=== PATIENT | female | born 1970 | race Caucasian/White ===

== ENCOUNTER 2021-06-12 17:17 | Emergency (ER) | payer MEDICAID, SELFPAY ==
[2021-06-12 17:17] VITALS: BP 140/86; PULSE 109; RESP 18; TEMP 37.2; O2SAT 95; BMI 22.6
[2021-06-12 17:18] VITALS: BMI 22.6
--- NOTE | 2021-06-12 17:23 | PC.NURSE ---
GOKUL CARRERA at
[2021-06-12 17:26] LABS: Basophils # 0.1 K/mm3 (0-0.2); Basophils % 0.5 % (0.1-2.0); Eosinophils # 0.1 K/mm3 (0.0-0.4); Hematocrit 47.7 % (37.0-47.0); Lymphocytes # 0.6 K/mm3 (0.7-4.5); Lymphocytes % 5.2 % (10-50); Mean Corpuscular HGB Conc 33.6 g/dL (31.8-35.4); Mean Corpuscular Hemoglobin 30.4 pg (27.0-31.2); Mean Corpuscular Volume 90.3 fl (81-99); Mean Platelet Volume 7.9 fl (7.4-10.4); Monocytes # 0.2 K/mm3 (0.1-1.0); Monocytes % 1.9 % (1.7-9.3); Neutrophils % 91.3 % (37.0-80.0); Platelet Count 287 K/mm3 (142-424); Red Blood Count 5.28 M/mm3 (4.20-5.40); Red Cell Distribution Width 12.9 % (11.5-17.5); White Blood Count 12.1 K/mm3 (4.8-10.8)
--- NOTE | 2021-06-12 17:27 | HMH.EDANX ---
ED Disposition Clinical Impression: Acute anxiety Disposition: Home, Self-Care Condition on Discharge: Good Instructions: Anxiety Disorders Additional Instructions: Please follow-up with your primary care physician in the next few days if you do not feel better. Return to the emergency department if you feel worse in any way. Prescriptions: ondansetron HCL [Ondansetron 4mg tab*] 4 mg PO TIDP PRN #12 tab PRN Reason: Nausea Transmission Status: Pending to [id number] Referrals: Provider,Referral, [Primary Care Provider] - - Critical Care Critical Care Time: No Attestation: On , the high probability of a clinically significant, sudden or life threatening deterioration of the following system(s) required my full and direct attention, intervention and personal management. The time I documented below is in addition to time spent performing reported procedures but includes the following listed in this critical care notation. Medical Decision Making - Medical Records Medical records reviewed: Yes: I reviewed the patient's medical records. - Pato Inquiry Pt receiving controlled substance: No Vital Signs: 06/12/21 17:17 Temperature 98.9 F Temperature Source Oral Pulse Rate [Left Radial] 109 H Respiratory Rate 18 Blood Pressure [Right Arm] 140/86 Blood Pressure Mean [Right Arm] 104 Blood Pressure Source [Right Arm] Automatic Cuff Blood Pressure Position [Right Arm] Sitting 02 Sat by Pulse Oximetry 95 Oxygen Delivery Method Room Air - Lab Data Lab results reviewed: Yes: I reviewed the patient's lab results. Lab Results 06/12/21 17:13: WBC 12.1 H, RBC 5.28, Hgb 16.0, Hct 47.7 H, MCV 90.3, MCH 30.4, MCHC 33.6, RDW 12.9, Plt Count 287, MPV 7.9, Neut % (Auto) 91.3 H, Lymph % (Auto) 5.2 L, [place] % (Auto) 1.9, Eos % (Auto) 1.0, Baso % (Auto) 0.5, Neut # (Auto) 11.0 H, Lymph # (Auto) 0.6 L, [place] # (Auto) 0.2, Eos # (Auto) 0.1, Baso # (Auto) 0.1 06/12/21 17:13: Sodium 138, Potassium 4.6, Chloride 105, Carbon Dioxide 23, Anion Gap 14.6, BUN 14, Creatinine 0.80, Estimated Creat Clear 83, Estimated GFR 76, Est GFR ( Amer) 92, Glucose 105 H, Calcium 9.3, Total Bilirubin 1.1, AST 32, ALT 22, Alkaline Phosphatase 62, Total Protein 7.5, Albumin 4.6, Globulin 2.9, Albumin/Globulin Ratio 1.6 Result diagrams: 06/12/21 17:13 06/12/21 17:13 Orders (Tests/Meds): ED MEDICATIONS Generic Name Dose Route Start Last Admin Trade Name Freq PRN Reason Stop Dose Admin Sodium Chloride 10 ml 06/12/21 17:19 06/12/21 17:35 Sodium Chloride 0.9% 10ml Flush Syringe IV 07/12/21 17:18 10 ml NEEDED PRN Administration Maintain IV Site Discontinued Medications Generic Name Dose Route Start Last Admin Trade Name Freq PRN Reason Stop Dose Admin Diphenhydramine HCl 25 mg 06/12/21 17:26 06/12/21 17:34 Diphenhydramine 50mg/Ml Vial IV 06/12/21 17:27 25 mg ONCE ONE Administration Ondansetron HCl 4 mg 06/12/21 17:26 06/12/21 17:34 Ondansetron 4mg/2ml Vial IV 06/12/21 17:27 4 mg ONCE ONE Administration ORDERS Category Date Time Status Complete Blood Count Auto Diff Stat Lab 06/12/21 17:13 Results UA [Urinalysis and Microscopic] Stat Lab 06/12/21 17:19 Ordered Medical Decision Narrative: The patient feels better and is sleeping at this time. Her tingling has resolved. She complains of some continued nausea. The patient's work-up in the emergency department did not reveal any life-threatening or dangerous causes for the patient's symptoms. She has a mildly elevated white blood cell count which is nonspecific finding. Her electrolytes are normal. Tums have essentially resolved. The patient will be discharged in stable condition with a prescription of Zofran. Anxiety HPI - General Chief Complaint: Anxiety Stated Complaint: vomitting, tingling of hands and feet Time Seen by Provider: 06/12/21 17:27 Mode of Arrival: Family Vehicle Source of Information: Patient
[2021-06-12 17:30] LABS: MANUAL DIFFERENTIAL MANUAL DIFFERENTIAL (MANUAL DIFF)
[2021-06-12 17:36] LABS: Chloride 105 mmol/L (98-107); Potassium 4.6 mmoL/L (3.5-5.1); Sodium 138 mmol/L (136-145)
[2021-06-12 17:39] LABS: Alanine Aminotransferase 22 U/L (12-78); Albumin Level 4.6 g/dl (3.5-5.0); Albumin/Globulin Ratio 1.6 (1.1-1.8); Alkaline Phosphatase 62 U/L (38-126); Anion Gap 14.6 mEq/L (5-15); Aspartate Amino Transferase 32 U/L (14-36); Bilirubin,Total 1.1 mg/dl (0.2-1.3); Blood Urea Nitrogen 14 mg/dl (7-17); Calcium 9.3 mg/dl (8.4-10.2); Carbon Dioxide 23 mmol/L (22.0-30.0); Creatinine Clearance Estimated 83 mL/min (50-200); Estimated Glomerular Filt Rate 76 ml/min (>60); GFR (African American) 92 ML/MIN (>60); Globulin 2.9 g/dL (1.3-3.2); Glucose 105 mg/dl (74-100); Total Protein,Serum 7.5 g/dl (6.3-8.2)
[2021-06-12 18:00] VITALS: BP 147/94; PULSE 88; RESP 24; O2SAT 96
[2021-06-12 18:37] VITALS: BP 130/77; PULSE 86; RESP 24; O2SAT 97
[2021-06-12 18:46] LABS: Lymphocytes % 4 % (10-50); Monocytes % 3 % (2-9); Neutrophils % 88 % (42-76); Platelet Estimate Normal; RBC Morphology Normal; Total Cells Counted 100
[2021-06-12 19:14] VITALS: BP 130/76; PULSE 98; RESP 18; TEMP 37.2; O2SAT 97
== END 2021-06-12 19:21 | disposition home or self-care (01) ==
PROVIDERS: Emergency Provider Emergency Medicine
DX: F41.1 Generalized anxiety disorder (principal); F43.0 Acute stress reaction
CPT/HCPCS: 80053; 85007; 85025; 96374; 96375; 99284; J2405

== ENCOUNTER 2023-12-29 13:25 | Outpatient (CLI) | payer MEDICAID, SELFPAY ==
--- NOTE | 2023-12-29 13:31 | XR_ITS ---
PROCEDURE INFORMATION: Exam: XR Lumbosacral Spine Exam date and time: 12/29/2023 1:36 PM Age: 53 years old Clinical indication: Low back pain; Additional info: Pain back and left hip TECHNIQUE: Imaging protocol: Radiologic exam of the lumbosacral spine. Views: 2 or 3 views. COMPARISON: CR XR HIP LT 2-3V W/PELVIS 12/29/2023 1:36 PM FINDINGS: Bones/joints: Mild degenerative disc disease reflected as a decrease in disc space height and anterior endplate osteophytosis L3-L4. No spondylolisthesis. No pars defect. No fracture. Soft tissues: Unremarkable. IMPRESSION: Mild degenerative disc disease.
--- NOTE | 2023-12-29 13:31 | XR_ITS ---
PROCEDURE INFORMATION: Exam: XR Left Hip Exam date and time: 12/29/2023 1:36 PM Age: 53 years old Clinical indication: Hip pain; Left hip; Additional info: Pain left hip and back TECHNIQUE: Imaging protocol: Radiologic exam of the left hip. Views: 2 or 3 views hip with pelvis when performed. COMPARISON: CR XR LUMBAR SPINE 2-3V 12/29/2023 1:36 PM FINDINGS: Bones/joints: osseous structures of the pelvis are without an acute process. rami are intact. Sacroiliac joints without separation/diastases/fracture. Iliac bones are normal. trabecular stress markings normal. intertrochanteric region normal. No displacement or rotation. Acetabulum without fracture. Joint space appears normal. Soft tissues: See Bones/joints finding. IMPRESSION: 1. Normal pelvis. 2. Normal hip.
== END 2023-12-29 23:59 | disposition home or self-care (01) ==
LOC: RAD 13:26
PROVIDERS: PCP Family Medicine; Visit Provider Family Medicine
DX: M25.552 Pain in left hip (principal); M54.50 Low back pain, unspecified
CPT/HCPCS: 72100; 73502

== ENCOUNTER 2024-02-04 12:14 | Emergency (ER) | payer MEDICAID, SELFPAY ==
[2024-02-04] VITALS (7 sets, daily range): BP systolic 139–205; BP diastolic 78–120; PULSE 64–91; RESP 13–20; TEMP 37–37.1; O2SAT 97–100; BMI 25.8
--- NOTE | 2024-02-04 12:22 | XR_ITS ---
PROCEDURE INFORMATION: Exam: XR Chest Exam date and time: 02/04/2024 12:55 PM Age: 53 years old Clinical indication: Shortness of breath; Additional info: levon BARBOSA TECHNIQUE: Imaging protocol: Radiologic exam of the chest. Views: 2 views. COMPARISON: No relevant prior studies available. FINDINGS: Tubes, catheters and devices: EKG leads. Lungs: Unremarkable. No consolidation. Pleural spaces: Unremarkable. No pleural effusion. No pneumothorax. Heart/Mediastinum: Unremarkable. No cardiomegaly. Bones/joints: Unremarkable. Intraperitoneal space: Right upper quadrant clips. IMPRESSION: No acute findings.
--- NOTE | 2024-02-04 12:23 | HMH.EDCP ---
Discharge Plan Disposition Patient Disposition: Home, Self-Care Condition: Good Prescriptions Prescriptions: New cefadroxil 500 mg capsule 500 mg PO BID 10 Days Qty: 20 0RF ondansetron 4 mg tablet,disintegrating 4 mg PO Q8H PRN (Reason: nausea and vomiting) Qty: 7 0RF No Action citalopram [Celexa] 20 mg tablet 20 mg PO DAILY Qty: 30 5RF omeprazole 40 mg capsule,delayed release(DR/EC) 40 mg PO DAILY Qty: 30 5RF propranolol 80 mg capsule,extended release 24 hr 80 mg PO DAILY Qty: 30 5RF naproxen sodium [Anaprox DS] 550 mg tablet 550 mg PO Q12H PRN (Reason: hip and back pain) Qty: 20 1RF Activity Restrictions/Add. Instructions Additional Instructions/Restrictions: Start antibiotics today be sure to take it as ordered with the full length of time although you should start feeling better in 24-48 hours. Change toothbrush and toothpaste 24-48 hours after starting antibiotics Tylenol or Motrin as needed for fever or pain Encourage fluids, water, Gatorade, Powerade, try cold fluids, popsicles, ice cream will make it feel better You are contagious for 24 hours. Avoid kissing anyone, no eating or drinking after anyone. You are contagious. Follow-up the ER for new or worsening symptoms or no noticeable improvement over the next 24-48 hours. Follow-up with PCP this week. Clinical Impressions Clinical Impression: Strep sore throat UTI (urinary tract infection) Qualifiers: Urinary tract infection type: acute cystitis Hematuria presence: without hematuria Qualified Code(s): N30.00 - Acute cystitis without hematuria Nausea & vomiting Qualifiers: Vomiting type: unspecified Qualified Code(s): R11.2 - Nausea with vomiting, unspecified Instructions Patient Instructions: DI for Strep Throat, DI for Urinary Tract Infection (UTI) Print Language Print Language: Maori Discharge ED Provider: Ann Go HPI <Bijal Greenwood ([facility]), CIVIL DEFENSE DIRECTOR - Last Filed: 02/04/24 15:13> General Chief Complaint: Chest Pain Stated Complaint: Chest Pain Time Seen by Provider: 02/04/24 12:22 History of Present Illness HPI narrative: 53-year-old female presents for multiple complaints such as chest pain, epigastric pain, sore throat, body aches, chills, rash between both breasts and under breast, earache, nausea and vomiting, and fatigue since Tuesday. Associated symptoms: nausea and vomiting Related Data Previous Rx's ?Medication ?Instructions ?Recorded citalopram 20 mg tablet (Celexa) 20 mg PO DAILY #30 tabs 11/15/23 omeprazole 40 mg capsule,delayed 40 mg PO DAILY #30 caps 11/15/23 release propranolol 80 mg capsule,24 80 mg PO DAILY #30 caps 11/15/23 hr,extended release naproxen sodium 550 mg tablet 550 mg PO Q12H PRN hip and back 12/29/23 (Anaprox DS) pain #20 tabs cefadroxil 500 mg capsule 500 mg PO BID 10 days #20 caps 02/04/24 ondansetron 4 mg disintegrating 4 mg PO Q8H PRN nausea and 02/04/24 tablet vomiting #7 tabs Allergies Allergy/AdvReac Type Severity Reaction Status Date / Time morphine Allergy Verified 12/29/23 11:25 albuterol AdvReac tachycardia Verified 12/29/23 11:25 PFSH <Bijal Greenwood ([facility]), CIVIL DEFENSE DIRECTOR - Last Filed: 02/04/24 15:13> PFSH Disclaimer: The information contained in this section may have been updated after the patient was seen, as this information can be updated by other users. Medical History , CIVIL DEFENSE DIRECTOR) Benign tumor of small intestine PTSD (post-traumatic stress disorder) Sciatica Bipolar affect, depressed HTN (hypertension), benign Depression Anxiety Surgical History , CIVIL DEFENSE DIRECTOR) H/O oophorectomy History of cholecystectomy Social History , CIVIL DEFENSE DIRECTOR) Smoking Status: Never smoker alcohol intake: never current occupational status: unemployed Other Medical History Have you received the Flu Vaccine for this season: No Have you received the Pneumonia Vaccine: No <[facility] CIVIL DEFENSE DIRECTOR - Last Filed: 02/04/24 15:13> ROS Obtained: Yes Systems reviewed as appropriate & no additional complaints except as documented Constitutional Constitutional: Reports system reviewed and no additional complaints, except as documented, Reports as per HPI, Reports body ache, Reports chills, Reports fatigue and Reports poor appetite ENT Ears, Nose, Mouth, and Throat: Reports system reviewed and no additional complaints, except as documented, Reports as per HPI and Reports sore throat Cardiovascular Cardiovascular: Reports system reviewed and no additional complaints, except as documented, Reports as per HPI and Reports chest pain Respiratory Respiratory: Reports system reviewed and no additional complaints, except as documented, Reports as per HPI, Reports cough and Reports cough with sputum production Gastrointestinal Gastrointestingal: Reports system reviewed and no additional complaints, except as documented, as per HPI, nausea and vomiting Endocrine Endocrine: Reports system reviewed and no additional complaints, except as documented, Reports as per HPI and Reports fatigue Physical Exam <Bijal Greenwood ([facility]), CIVIL DEFENSE DIRECTOR - Last Filed: 02/04/24 15:13> General General appearance: alert and in no apparent distress Eye Eye exam: Present normal appearance ENT ENT exam: Present mucous membranes moist Expanded ENT Exam Throat exam: Present tonsillar erythema, tonsillomegaly and tonsillar exudate Respiratory Respiratory exam: Present normal lung sounds bilaterally Cardiovascular Cardiovascular exam: Present regular rate and normal rhythm Abdominal Exam Abdominal exam: Present soft, tenderness (Upper gastric) and normal bowel sounds Abdominal tenderness: Present epigastrium Neurological Exam Neurological exam: Present alert, oriented X3 and CN II-XII intact Skin Skin exam: Present warm and intact Lymphatic Lymphatic Findings: no adenopathy HEART Score <Bijal Greenwood ([facility]), CIVIL DEFENSE DIRECTOR - Last Filed: 02/04/24 15:13> HEART Score HEART Score assessment performed?: Yes History (anamnesis): Slightly suspicious ECG: Non-specific disturbance Age: 45-65 years Risk factors: No known risk factors Troponin: </= normal limit HEART Score: 2 <Ann Go MD - Last Filed: 02/04/24 15:15> HEART Score HEART Score: 2 Critical Care <Bijal Greenwood ([facility]), CIVIL DEFENSE DIRECTOR - Last Filed: 02/04/24 15:13> Critical Care Time Critical Care Time: No Medical Decision Making <Bijal Greenwood ([facility]), CIVIL DEFENSE DIRECTOR - Last Filed: 02/04/24 15:13> Medical Records Medical records reviewed: Yes I reviewed the patient's medical records. Pato Inquiry Pt receiving controlled substance: No Pato was queried for this patient: No Vital Signs Vital Signs: 02/04/24 12:14 02/04/24 12:42 02/04/24 13:01 Temperature 98.7 F Temperature Source Oral Pulse Rate 74 66 Pulse Rate [Right Radial] 91 H Respiratory Rate 20 18 Blood Pressure 139/81 Blood Pressure [Right Arm] 205/120 H Blood Pressure Mean 104 Blood Pressure Mean [Right Arm] 148 02 Sat by Pulse Oximetry 99 100 Oxygen Delivery Method Room Air 02/04/24 13:30 02/04/24 14:00 02/04/24 14:30 Temperature Temperature Source Pulse Rate 83 64 Pulse Rate [Right Radial] Respiratory Rate 13 14 17 Blood Pressure 139/81 150/107 H 157/81 H Blood Pressure [Right Arm] Blood Pressure Mean Blood Pressure Mean [Right Arm] 02 Sat by Pulse Oximetry 98 97 99 Oxygen Delivery Method Room Air Room Air Room Air Lab Data Lab results reviewed: Yes I reviewed the patient's lab results. Labs: Lab Results 02/04/24 12:20: SARS-CoV-2 (PCR) Not detected, Influenza A Untype (PCR) Not detected, Influenza Type B (PCR) Not detected, Group A Strep Rapid Positive A 02/04/24 12:31: WBC 20.8 H*, RBC 4.89, Hgb 14.4, Hct 42.4, MCV 86.7, MCH 29.4, MCHC 34.0, RDW 12.1, Plt Count 228, MPV 11.4 H, Neut % (Auto) 84.7 H, Lymph % (Auto) 8.5 L, [place] % (Auto) 5.7, Eos % (Auto) 0.1, Baso % (Auto) 0.4, Neut # (Auto) 17.6 H, Lymph # (Auto) 1.8, [place] # (Auto) 1.2 H, Eos # (Auto) 0.0, Baso # (Auto) 0.1, Sodium 139, Potassium 3.8, Chloride 105, Carbon Dioxide 24, Anion Gap 13.8, BUN 13, Creatinine 0.80, Estimated Creat Clear 93, Estimated GFR 75, Est GFR ( Amer) 91, Glucose 112 H, Calcium 9.4, Total Bilirubin 0.5, AST 28, ALT 19, Alkaline Phosphatase 97, Troponin I < 0.01, Total Protein 7.7, Albumin 4.4, Globulin 3.3 H, Albumin/Globulin Ratio 1.3 02/04/24 12:37: Lactate 0.7 02/04/24 13:14: Urine Color Yellow, Urine Appearance Clear, Urine pH 6.0, Ur Specific [place] >= 1.030, Urine Protein Trace, Urine Glucose (UA) Negative, Urine Ketones 1+, Urine Blood Negative, Urine Nitrate Negative, Urine Bilirubin 1+ A, Urine Urobilinogen 1.0, Ur Leukocyte Esterase Trace, Urine RBC Occasional, Urine WBC 10-20, Ur Squamous Epith Cells 3-5, Urine Bacteria Trace 02/04/24 14:20: Troponin I < 0.01 02/04/24 12:31 02/04/24 12:31 Response Orders (Tests/Meds): ED MEDICATIONS Discontinued Medications Generic Name Dose Route Start Last Admin Trade Name Freq PRN Reason Stop Dose Admin Sodium Chloride 1,000 mls @ 999 mls/hr 02/04/24 13:14 02/04/24 13:23 Sod Chlor 0.9% 1000ml Bag IV 02/04/24 14:14 999 mls/hr .Q1H1M ONE Administration Ibuprofen 400 mg 02/04/24 13:20 02/04/24 13:23 Ibuprofen 400 Mg Tablet PO 02/04/24 13:21 400 mg ONCE ONE Administration Ondansetron HCl 4 mg 02/04/24 13:14 02/04/24 13:23 Ondansetron 4mg/2ml Vial IV 02/04/24 13:15 4 mg ONCE ONE Administration ORDERS Category Date Time Status Chest XR 2 view (NOT portable) [XR chest 2V] Stat Exams 02/04/24 12:22 Completed CBC Man Diff [Complete Blood Count Man Dif] Stat Lab 02/04/24 12:31 Results CMP [Comprehensive Metabolic Panel] Stat Lab 02/04/24 12:31 Completed Lactic Acid Stat Lab 02/04/24 12:37 Completed Rapid PCR Covid and Flu A/B Stat Lab 02/04/24 12:20 Completed Strep Scrn Group A (Rapid) Stat Lab 02/04/24 12:20 Completed Troponin I Q3H Lab 02/04/24 14:20 Completed Troponin I Q3H Lab 02/04/24 18:30 Ordered Troponin I Stat Lab 02/04/24 12:31 Completed Urinalysis and Microscopic Stat Lab 02/04/24 13:14 Completed Urine Culture Stat Micro 02/04/24 13:14 Received MDM Narrative Medical Decision Narrative: In summary patient is a 53-year-old female who presents to the emergency department for evaluation of multiple complaints such as body aches, chills, chest pain, coughing productive sputum, rash between breasts and under breast, sore throat, pain in epigastric area since Tuesday. Patient is hemodynamically stable upon arrival, afebrile. Tonsils enlarged red with exudate, rash under bilateral breast, tender in the epigastric on assessment. Differential diagnosis includes acute [place], flu, strep, COVID, viral infection. Initial workup will be conducted with labs normal, chest x-ray no acute findings, troponin. Initial inventions include normal saline and Zofran. Initial workup reviewed by mi labs unremarkable, strep positive, UA shows trace leuks. Upon repeat evaluation patient states she is feeling better and requesting some water to drink. Second set of troponins are negative. Given this patient was appropriate discharge at this time will discharge home with a prescription for cefadroxil 500 twice daily to cover strep and UTI. She will follow-up with primary care this week. I informally interpreted patient's chest x-ray no acute findings Documented with radiation monitor normal sinus rhythm with rate 64. I was consulted by the VON, and we discussed the complexity of problems being addressed. I approved the treatment and management plan for this patient's care in the emergency department, thus performing a substantial portion of the medical decision making. Ann Go MD <Ann Go MD - Last Filed: 02/04/24 15:15> Vital Signs Vital Signs: 02/04/24 12:14 02/04/24 12:42 02/04/24 13:01 Temperature 98.7 F Temperature Source Oral Pulse Rate 74 66 Pulse Rate [Right Radial] 91 H Respiratory Rate 20 18 Blood Pressure 139/81 Blood Pressure [Right Arm] 205/120 H Blood Pressure Mean 104 Blood Pressure Mean [Right Arm] 148 02 Sat by Pulse Oximetry 99 100 Oxygen Delivery Method Room Air 02/04/24 13:30 02/04/24 14:00 02/04/24 14:30 Temperature Temperature Source Pulse Rate 83 64 Pulse Rate [Right Radial] Respiratory Rate 13 14 17 Blood Pressure 139/81 150/107 H 157/81 H Blood Pressure [Right Arm] Blood Pressure Mean Blood Pressure Mean [Right Arm] 02 Sat by Pulse Oximetry 98 97 99 Oxygen Delivery Method Room Air Room Air Room Air Lab Data Labs: Lab Results 02/04/24 12:20: SARS-CoV-2 (PCR) Not detected, Influenza A Untype (PCR) Not detected, Influenza Type B (PCR) Not detected, Group A Strep Rapid Positive A 02/04/24 12:31: WBC 20.8 H*, RBC 4.89, Hgb 14.4, Hct 42.4, MCV 86.7, MCH 29.4, MCHC 34.0, RDW 12.1, Plt Count 228, MPV 11.4 H, Neut % (Auto) 84.7 H, Lymph % (Auto) 8.5 L, [place] % (Auto) 5.7, Eos % (Auto) 0.1, Baso % (Auto) 0.4, Neut # (Auto) 17.6 H, Lymph # (Auto) 1.8, [place] # (Auto) 1.2 H, Eos # (Auto) 0.0, Baso # (Auto) 0.1, Sodium 139, Potassium 3.8, Chloride 105, Carbon Dioxide 24, Anion Gap 13.8, BUN 13, Creatinine 0.80, Estimated Creat Clear 93, Estimated GFR 75, Est GFR ( Amer) 91, Glucose 112 H, Calcium 9.4, Total Bilirubin 0.5, AST 28, ALT 19, Alkaline Phosphatase 97, Troponin I < 0.01, Total Protein 7.7, Albumin 4.4, Globulin 3.3 H, Albumin/Globulin Ratio 1.3 02/04/24 12:37: Lactate 0.7 02/04/24 13:14: Urine Color Yellow, Urine Appearance Clear, Urine pH 6.0, Ur Specific [place] >= 1.030, Urine Protein Trace, Urine Glucose (UA) Negative, Urine Ketones 1+, Urine Blood Negative, Urine Nitrate Negative, Urine Bilirubin 1+ A, Urine Urobilinogen 1.0, Ur Leukocyte Esterase Trace, Urine RBC Occasional, Urine WBC 10-20, Ur Squamous Epith Cells 3-5, Urine Bacteria Trace 02/04/24 14:20: Troponin I < 0.01 Response Orders (Tests/Meds): ED MEDICATIONS Discontinued Medications Generic Name Dose Route Start Last Admin Trade Name Josesito PRN Reason Stop Dose Admin Sodium Chloride 1,000 mls @ 999 mls/hr 02/04/24 13:14 02/04/24 13:23 Sod Chlor 0.9% 1000ml Bag IV 02/04/24 14:14 999 mls/hr .Q1H1M ONE Administration Ibuprofen 400 mg 02/04/24 13:20 02/04/24 13:23 Ibuprofen 400 Mg Tablet PO 02/04/24 13:21 400 mg ONCE ONE Administration Ondansetron HCl 4 mg 02/04/24 13:14 02/04/24 13:23 Ondansetron 4mg/2ml Vial IV 02/04/24 13:15 4 mg ONCE ONE Administration ORDERS Category Date Time Status Chest XR 2 view (NOT portable) [XR chest 2V] Stat Exams 02/04/24 12:22 Completed CBC Man Diff [Complete Blood Count Man Dif] Stat Lab 02/04/24 12:31 Results CMP [Comprehensive Metabolic Panel] Stat Lab 02/04/24 12:31 Completed Lactic Acid Stat Lab 02/04/24 12:37 Completed Rapid PCR Covid and Flu A/B Stat Lab 02/04/24 12:20 Completed Strep Scrn Group A (Rapid) Stat Lab 02/04/24 12:20 Completed Troponin I Q3H Lab 02/04/24 14:20 Completed Troponin I Q3H Lab 02/04/24 18:30 Ordered Troponin I Stat Lab 02/04/24 12:31 Completed Urinalysis and Microscopic Stat Lab 02/04/24 13:14 Completed Urine Culture Stat Micro 02/04/24 13:14 Received MDM Narrative Medical Decision Narrative: In summary patient is a 53-year-old female who presents to the emergency department for evaluation of multiple complaints such as body aches, chills, chest pain, coughing productive sputum, rash between breasts and under breast, sore throat, pain in epigastric area since Tuesday. Patient is hemodynamically stable upon arrival, afebrile. Tonsils enlarged red with exudate, rash under bilateral breast, tender in the epigastric on assessment. Differential diagnosis includes [DDx]. Initial workup will be conducted with [hematologic labs, imaging, respiratory swab, described workup]. Initial inventions include [crystalloid bolus, medications, p.o. challenge, etc.]. Initial workup reviewed by me [hematologic labs remarkable for? Imaging remarkable for? Urinalysis remarkable for?]. Upon repeat evaluation [patient had except for resolution of symptoms, had persistent pain for which additional interventions were conducted (describe interventions), tolerated p.o., was ambulatory, etc.]. Given this [patient was appropriate for discharge at this time and will be discharged with a prescription for? This case was discussed with hospital medicine regarding management? They will meet the patient to their service for continued evaluation at this time? Etc.] Places where you can increase complexity: I informally interpreted patient's chest x-ray or CT and is remarkable for? Documented with radiation monitor shows rate and rhythm with time Consideration of test but deferring. Example: I consider chest x-ray on this patient however given that they have no oxygen requirement are clear to auscultation all lung dos santos we deferred. Social determinants of health: Given that patient is undomiciled increases complexity. Given that patient has polysubstance abuse compounds all aspects of care. I was consulted by the VON, and we discussed the complexity of problems being addressed. I approved the treatment and management plan for this patient's care in the emergency department, thus performing a substantial portion of the medical decision making. Ann Go MD
--- NOTE | 2024-02-04 12:24 | ECG_ITS ---
APPROVED REPORT Exam: Resting ECG HR:72 bpm ECG Measurements Heart Rate 72 AXES AR 129 P -8 QRSd 90 QRS 63 QT 349 T -72 QTc 374 Conclusion Normal sinus rhythm, normal axis no acute ST elevation ST depression concerning for ischemia. T wave inversions noted in V4 V5 and V6 Electronically signed by : Ann Go, 02/04/2024 14:40:30
[2024-02-04 12:30] LABS: Coronavirus 19, PCR Not Detected (NotDetected); Influenza A, PCR Not Detected (NotDetected); Influenza B, PCR Not Detected (NotDetected)
[2024-02-04 12:38] LABS: Strep Scrn Group A (Rapid) Positive (Negative)
[2024-02-04 12:44] LABS: Albumin Level 4.4 g/dl (3.5-5.0); Chloride 105 mmol/L (98-107); Sodium 139 mmol/L (136-145)
[2024-02-04 12:45] LABS: Potassium 3.8 mmoL/L (3.5-5.1)
[2024-02-04 12:47] LABS: Alanine Aminotransferase 19 U/L (12-78); Albumin/Globulin Ratio 1.3 (1.1-1.8); Alkaline Phosphatase 97 U/L (38-126); Anion Gap 13.8 mEq/L (5-15); Aspartate Amino Transferase 28 U/L (14-36); Bilirubin,Total 0.5 mg/dl (0.2-1.3); Blood Urea Nitrogen 13 mg/dl (7-17); Carbon Dioxide 24 mmol/L (22.0-30.0); Creatinine Clearance Estimated 93 mL/min (50-200); Estimated Glomerular Filt Rate 75 ml/min (>60); GFR (African American) 91 ML/MIN (>60); Globulin 3.3 g/dL (1.3-3.2); Total Protein,Serum 7.7 g/dl (6.3-8.2)
[2024-02-04 12:48] LABS: Calcium 9.4 mg/dl (8.4-10.2); Glucose 112 mg/dl (74-100)
[2024-02-04 12:54] LABS: Lactic Acid 0.7 mmol/L (0.7-2.1)
[2024-02-04 13:01] LABS: Troponin I < 0.01 ng/ml (0.00-0.034)
[2024-02-04 13:18] LABS: Microscopic, Urine URINE MICROSCOPIC (MICROSCOPIC)
[2024-02-04 13:20] LABS: Appearance,Urine CLEAR (Clear); Blood, Urine Negative (Negative); Color,Urine YELLOW (Yellow); Glucose,Urine (UA) Negative (Negative); Ketones,Urine 1+ (Negative); Leukocyte Esterase,Urine TRACE (Negative); Nitrate,Urine Negative (Negative); Protein,Urine TRACE (Negative); Specific Gravity, Urine >= 1.030 (1.005-1.030)
[2024-02-04] MEDS: 0.9 % SODIUM CHLORIDE 1000ML 1,000 ML 999 ML IV (13:23)
[2024-02-04] MEDS: IBUPROFEN 400 MG TABLET PO (13:23)
[2024-02-04] MEDS: ONDANSETRON 4MG/2ML VIAL 4 MG IV (13:23)
[2024-02-04 13:34] LABS: Bilirubin,Urine 1+ (Negative)
[2024-02-04 13:40] LABS: RBC,Urine Occasional #/hpf (0-3)
[2024-02-04 13:41] LABS: Bacteria,Urine Trace /lpf
[2024-02-04 14:45] LABS: White Blood Count 20.8 K/mm3 (4.8-10.8)
[2024-02-04 14:46] LABS: Hemoglobin 14.4 g/dL (12.2-16.2); Red Blood Count 4.89 M/mm3 (4.20-5.40)
[2024-02-04 14:47] LABS: Hematocrit 42.4 % (37.0-47.0); Mean Corpuscular Hemoglobin 29.4 pg (27.0-31.2); Mean Corpuscular Volume 86.7 fl (81-99)
[2024-02-04 14:48] LABS: Mean Platelet Volume 11.4 fl (7.4-10.4); Platelet Count 228 K/mm3 (142-424); Red Cell Distribution Width 12.1 % (11.5-17.5)
[2024-02-04 14:49] LABS: Basophils % 0.4 % (0.1-2.0); Eosinophils % 0.1 % (0.1-12.0); Lymphocytes % 8.5 % (10-50); Monocytes % 5.7 % (1.7-9.3); Neutrophils % 84.7 % (37.0-80.0)
[2024-02-04 14:50] LABS: Lymphocytes # 1.8 K/mm3 (0.7-4.5); Monocytes # 1.2 K/mm3 (0.1-1.0); Neutrophils # 17.6 K/mm3 (1.8-7.8)
[2024-02-04 14:51] LABS: Basophils # 0.1 K/mm3 (0-0.2)
[2024-02-04 15:08] LABS: Troponin I < 0.01 ng/ml (0.00-0.034)
--- NOTE | 2024-02-04 15:31 | PC.NURSE ---
Pt called to have scripts changed to Beena MARTINEZ. This was completed.
[2024-02-04 18:09] LABS: Lymphocytes % 10 % (10-50); Monocytes % 2 % (2-9); Neutrophils % 88 % (42-76); RBC Morphology Normal; Total Cells Counted 100
[2024-02-04 18:10] LABS: Platelet Estimate Normal
== END 2024-02-04 15:26 | disposition home or self-care (01) ==
PROVIDERS: Nurse Practitioner Family; Emergency Provider Student in an Organized Health Care Education/Training Program; PCP Family Medicine
DX: N39.0 Urinary tract infection, site not specified (principal); J02.0 Streptococcal pharyngitis; R07.9 Chest pain, unspecified; R10.13 Epigastric pain; J02.9 Acute pharyngitis, unspecified; M79.10 Myalgia, unspecified site; R68.83 Chills (without fever); R21 Rash and other nonspecific skin eruption; H92.03 Otalgia, bilateral; R11.2 Nausea with vomiting, unspecified; R53.83 Other fatigue
CPT/HCPCS: 71046; 80053; 81001; 83605; 84484; 85007; 85014; 85018; 85048; 85049; 87086; 87430; 87636; 93005; 96361; 96374; 99284; J2405; J7030

== ENCOUNTER 2024-04-04 09:07 | Day surgery (SDC) | payer MEDICAID, SELFPAY ==
[2024-04-04 09:41] VITALS: BMI 29.8
[2024-04-04] MEDS: LACTATED RINGERS 1000ML 1,000 ML 50 ML IV (09:45)
[2024-04-04 09:50] VITALS: BP 164/88; PULSE 62; RESP 18; TEMP 36.4; O2SAT 98
--- NOTE | 2024-04-04 10:19 | EXP.ANES.CKL ---
[facility] Disclaimer: The information contained in this section may have been updated after the patient was seen, as this information can be updated by other users. Medical History Benign tumor of small intestine PTSD (post-traumatic stress disorder) Sciatica Bipolar affect, depressed HTN (hypertension), benign Depression Anxiety Surgical History H/O oophorectomy History of cholecystectomy Family History (Updated 04/04/24 @ 09:37 by Sofy Mast RN) Other No significant family history Social History (Updated 04/04/24 @ 09:38 by Sofy Mast RN) Smoking Status: Never smoker alcohol intake: never substance use type: denies use current occupational status: unemployed Travel in the last 8 weeks: None caffeine: Yes [facility] Anesthesia Checklist Patient Identification Patient Identification: Arm Band Structural Data Admitted From: Home Planned Operative Procedure/s: EGD/Colonoscopy Consent for Planned Operative Procedure(s) Verified: Yes Verified Documents: Surgical Consent and History and Physical NPO Status Verified Time NPO: 00:00 Additional verifications Anesthesia Reactions: No Airway Assessment Mallampati Score:: Class II C-Spine Mobility Assessed: Yes TMJ Mobility Assessed: Yes Dentition: Good Dentition Neurological Assessment Level of Consciousness: Awake, Alert and Appropriate Anesthesia Plan Anesthesia Risk discussed: Yes Anesthesia Plan: Verified ASA Class: II Anesthesia Type: MAC
--- NOTE | 2024-04-04 11:25 | EXP.HP ---
History of Present Illness *Admission Date: 04/04/24 *Reason for visit:: Nausea and vomiting, GERD, epigastric/left upper quadrant pain and change i *History of present illness: Mrs. Askew is a 53-year-old female with nausea, vomiting, dyspepsia, GERD and change in bowel habits with mucus in stool who is here for diagnostic EGD and colonoscopy. The examination is deemed medically necessary for EGD and colonoscopy. The patient has been seen, interviewed and examined prior to the procedure by both myself and the anesthesia provider. [facility] Disclaimer: The information contained in this section may have been updated after the patient was seen, as this information can be updated by other users. Medical History Benign tumor of small intestine PTSD (post-traumatic stress disorder) Sciatica Bipolar affect, depressed HTN (hypertension), benign Depression Anxiety Surgical History H/O oophorectomy History of cholecystectomy Family History (Updated 04/04/24 @ 09:37 by Sofy Mast RN) Other No significant family history Social History (Updated 04/04/24 @ 10:20 by Dwayne Marie CRNA) Smoking Status: Never smoker alcohol intake: never substance use type: denies use current occupational status: unemployed Travel in the last 8 weeks: None caffeine: Yes Have you lived/traveled outside US in past 30 days?: No Contact w/someone who lives/traveled outside US past 30 days?: No Exposure to someone with infectious disease in past 14 days?: No Do you have a fever (greater than 100.4 F or 38 C)?: No Have you tested positive for COVID-19: No Exposed to someone with COVID-19 in past 14 days?: No Do you have a sore throat?: No Do you have a cough?: No Do you have any weakness?: No Are you experiencing any nausea/vomitting?: No Do you have any diarrhea?: No Are you experiencing any unusual bleeding?: No Do you have any muscle aches/pain?: No Do you have any abdominal pain?: No Are you experiencing loss of taste or smell?: No Other Medical History Have you received the Flu Vaccine for this season: No Have you received the Pneumonia Vaccine: No Review of Systems Review of Systems Review of systems (narrative): Negative *Cardiovascular Comments: Negative *Gastrointestinal Comments: Negative *Genitourinary Comments: Negative *Musculoskeletal Comments: Negative *Neurologic Comments: Negative Meds Home Medications and Allergies Home Medications ?Medication ?Instructions ?Recorded ?Confirmed ?Type omeprazole 40 mg capsule,delayed 40 mg PO DAILY #30 caps 11/15/23 04/04/24 Rx release propranolol 80 mg capsule,24 80 mg PO DAILY #30 caps 11/15/23 04/04/24 Rx hr,extended release naproxen sodium 550 mg tablet 550 mg PO Q12H PRN hip and back 12/29/23 04/04/24 Rx (Anaprox DS) pain #20 tabs aripiprazole 5 mg tablet (Abilify) 5 mg PO DAILY 03/21/24 04/04/24 History hydroxyzine HCl 25 mg tablet 25 mg PO BID PRN Anxiety 03/21/24 04/04/24 History triamcinolone acetonide 0.1 % 1 applic topical BID itching #30 03/21/24 04/04/24 Rx topical cream grams amoxicillin 500 mg tablet 500 mg PO TID #30 tabs 03/26/24 04/04/24 Rx ivermectin 3 mg tablet (Stromectol) 21 mg PO WEEKLY 04/04/24 History New Prescriptions to Start Prescriptions: Allergies Allergy/AdvReac Type Severity Reaction Status Date / Time morphine Allergy Nausea Verified 04/04/24 09:43 albuterol AdvReac tachycardia Verified 04/04/24 09:43 Exam Data for Last 24 hours Vital signs and Labs for Last 24 Hours: Temp Pulse Resp BP Pulse Ox O2 Del Method 97.6 F 62 18 164/88 H 98 Room Air 04/04/24 09:50 04/04/24 09:50 04/04/24 09:50 04/04/24 09:50 04/04/24 09:50 04/04/24 09:50 I & O for Last 24 hours: Intake & Output 04/01/24 04/02/24 04/03/24 04/04/24 23:59 23:59 23:59 23:59 Weight 185 lb *Routine HEENT Exam Head: Present normocephalic Eye: Present EOMI and PERRL ENT: Present mucous membranes moist *Routine Neck Exam Neck: Present supple *Routine Respiratory Exam Respiratory: Present CTA bilaterally *Routine Cardiovascular Exam Cardiovascular: Present RRR *Routine Abdominal Exam Abdominal: Present soft and normoactive bowel sounds; Absent tenderness *Routine Rectal Exam Rectal:: deferred *Routine Genitalia Exam Genitalia:: deferred *Routine Extremities Exam Extremities: Absent cyanosis, clubbing or edema *Routine Skin Exam Skin: Present warm; Absent rash *Routine Neurological Exam Neurological: Present alert and oriented X3 Assessment and Plan *Assessment and plan (1) LUQ pain: Status: Acute Category: Medical Code(s): R10.12 - Left upper quadrant pain (2) Epigastric pain: Status: Acute Category: Medical Code(s): R10.13 - Epigastric pain (3) Nausea & vomiting: Status: Acute Qualifiers: Vomiting type: unspecified Qualified Code(s): R11.2 - Nausea with vomiting, unspecified Category: Medical Code(s): R11.2 - Nausea with vomiting, unspecified (4) Change in bowel habits: Status: Acute Category: Medical Code(s): R19.4 - Change in bowel habit (5) GERD (gastroesophageal reflux disease): Status: Acute Category: Medical Code(s): K21.9 - Gastro-esophageal reflux disease without esophagitis Plan A/P: 1. Left upper quadrant/epigastric pain with nausea and vomiting for upper endoscopy and change in bowel habits for colonoscopy is the preprocedural diagnosis. The patient will be anesthetized/sedated using MAC sedation. The patient has been seen and examined. Cardiac and lung assessment prior to the examination is stable. Proceed with planned EGD and colonoscopy
[2024-04-04 11:31] VITALS: O2SAT 100
--- NOTE | 2024-04-04 11:41 | HMH.PROCNOTE ---
[facility] Procedure Note Date: 04/04/24 Time: 11:41 Procedure Note:: Upper Endoscopy Procedure Report: Esophagogastroduodenoscopy with cold biopsies Endoscopost: Keenan Ramirez II, MD Referring Physician: Regis Vergara MD Date of Procedure: April 04, 2024 Equipment: Olympus GIF 190 standard upper endoscope Sedation: MAC sedation Indications: Mrs. Askew is a 53-year-old female with chronic GERD and is on omeprazole daily. She also has chronic nausea and vomiting that has been going on for a few years and getting worse. She reports epigastric and some left upper quadrant abdominal pain. She also has had more constipation and may go up to 2 to 3 days without a bowel movement. She does note mucus in her stool. She does report some bloating. She reports no dysphagia. Her last EGD was in [place] (Richy Parker MD [facility]). Procedure: Prior to the procedure, a history and physical exam was performed, and patient's medications and allergies were reviewed. The risks, benefits and alternatives of the sedation and procedure were discussed with the patient. All questions were answered and informed consent was obtained. The patient was brought to the procedure room. Patient identification and proposed procedure were verified by the physician and the nurse. The patient was placed in a left lateral decubitus position and the scope was passed under direct vision. Throughout the procedure, the patient's blood pressure, pulse, and oxygen saturations were monitored continuously. The upper GI endoscopy was accomplished without difficulty. The patient tolerated the procedure well. Findings: The scope was passed directly into the upper esophagus and advanced to the third portion of the duodenum. The post bulbar duodenum and duodenal bulb were normal with normal mucosa and conniventes. There was a 9?10 mm lipoma in the second/third portion of the duodenum. Well biopsies were obtained and fat globules identified with deeper biopsies. The scope was withdrawn through a normal duodenal bulb and pylorus into the stomach. There was moderate bile reflux with mild linear reactive gastropathy of the antrum. The body and fundus of the stomach were normal. Biopsies were obtained from the antrum. Upon retroflexion there was a 2 cm hiatal hernia. The scope was then withdrawn into the esophagus. There was no evidence of reflux esophagitis or Cope's. There were tertiary contractions and evidence of moderate esophageal dysmotility. The remainder of the esophageal mucosa was normal. Impression: 1. Nonerosive GERD with moderate esophageal dysmotility and small 2 cm hiatal hernia 2. Bile reflux with mild linear reactive gastropathy 3. Duodenal lipoma second/third portion Plan: I will follow-up the biopsies. The patient does have functional dyspepsia. We will discuss additional dietary measures and treatment options. I would recommend [id number] herbal Iberogast. I will proceed with diagnostic colonoscopy.
--- NOTE | 2024-04-04 11:59 | HMH.PROCNOTE ---
[facility] Procedure Note Date: 04/04/24 Time: 11:59 Procedure Note:: Colonoscopy Procedure Report: Colonoscopy with cold snare polypectomy Endoscopist: Keenan Ramirez II, MD Referring physician: Regis Vergara MD Date of Procedure: April 04, 2024 Equipment: Olympus 190 variable stiffness pediatric colonoscope Sedation: MAC sedation Indication: Mrs. Askew is a 53-year-old female who is here for diagnostic colonoscopy secondary to a change in bowel habits and left upper quadrant abdominal pain. She has developed more constipation and bloating. Sometimes she will have to manually disimpact. She will get some occasional blood in the stool and does note mucus with her bowel movements. She reports no weight loss or family history of colon cancer. Her last colonoscopy was over 10 years ago in [place]. Procedure: Prior to the procedure, a history and physical exam was performed, and patient's medications and allergies were reviewed. The risks, benefits and alternatives of the sedation and procedure were discussed with the patient. All questions were answered and informed consent was obtained. The patient was brought to the procedure room. Patient identification and proposed procedure were verified by the physician and the nurse. The patient was placed in a left lateral decubitus position and the scope was passed under direct vision. Throughout the procedure, the patient's blood pressure, pulse, and oxygen saturations were monitored continuously. The colonoscopy was accomplished without difficulty. The patient tolerated the procedure well. Findings: On digital rectal examination there was normal rectal tone. There were no external hemorrhoids. The colonoscope was introduced through the anal canal to the rectum and advanced to the cecum. The ileocecal valve and appendiceal orifice were identified. The scope was advanced a short distance into the ileum which appeared grossly normal. The scope was then withdrawn into the colon. The cecum, ascending, transverse, descending, sigmoid and rectum were grossly normal. There was a single 3 mm polyp in the sigmoid colon removed via cold snare polypectomy. There were no mucosal abnormalities identified. Upon retroflexion within the rectum there were grade 1-2 internal hemorrhoids.The preparation was excellent throughout with [place] Preparation Score of 9. The cecal time was 12 minutes. Impression: 1. Diminutive 3 mm sigmoid polyp 2. Grade 1-2 internal hemorrhoids Plan: I will follow-up the polyp histology and recommend repeat surveillance colonoscopy again in 7 to 10 years. The patient does have functional dyspepsia and functional abdominal pain (splenic flexure syndrome). We will discuss additional treatment options.
[2024-04-04 12:02] VITALS: BP 131/79; PULSE 66; RESP 16; TEMP 36.1; O2SAT 98
[2024-04-04 12:12] VITALS: BP 118/80; PULSE 56; RESP 16; O2SAT 97
[2024-04-04 12:22] VITALS: BP 133/78; PULSE 56; RESP 16; O2SAT 98
[2024-04-04 12:32] VITALS: BP 125/80; PULSE 55; RESP 16; O2SAT 98
== END 2024-04-04 12:40 | disposition home or self-care (01) ==
PROVIDERS: PCP Family Medicine; Visit Provider Internal Medicine Gastroenterology
PROC: 0DJ08ZZ Inspection of Upper Intestinal Tract, Via Natural or Artificial Opening Endoscopic (ICD-10-PCS; CPT 45378; principal; 2024-04-04 10:30)
DX: R10.12 Left upper quadrant pain (principal); R10.13 Epigastric pain; R11.2 Nausea with vomiting, unspecified; R19.4 Change in bowel habit; K21.9 Gastro-esophageal reflux disease without esophagitis; K63.9 Disease of intestine, unspecified; R10.9 Unspecified abdominal pain; K22.4 Dyskinesia of esophagus; K44.9 Diaphragmatic hernia without obstruction or gangrene; K31.9 Disease of stomach and duodenum, unspecified; K63.5 Polyp of colon; K64.8 Other hemorrhoids
CPT/HCPCS: 43239; 45385; J7120

== ENCOUNTER 2024-04-16 14:30 | Emergency (ER) | payer MEDICAID, SELFPAY ==
[2024-04-16 14:31] VITALS: BP 192/80; PULSE 65; RESP 16; TEMP 36.8; O2SAT 100; BMI 31.8
--- NOTE | 2024-04-16 15:23 | PC.NURSE ---
ROUNDED ON THE PT. THE PT VOICES THAT SHE DOES NOT NEED ANYTHING AT THIS TIME. CALL LIGHT IS WITHIN REACH OF THE PT.
--- NOTE | 2024-04-16 15:28 | HMH.EDGENADL ---
Discharge Plan Disposition Patient Disposition: Home, Self-Care Prescriptions Prescriptions: New sulfamethoxazole-trimethoprim [Bactrim DS] 800-160 mg tablet 1 tab PO DAILY 7 Days Qty: 7 0RF No Action omeprazole 40 mg capsule,delayed release(DR/EC) 40 mg PO DAILY Qty: 30 5RF propranolol 80 mg capsule,extended release 24 hr 80 mg PO DAILY Qty: 30 5RF hydroxyzine HCl 25 mg tablet 25 mg PO BID PRN (Reason: Anxiety) triamcinolone acetonide 0.1 % cream 1 applic topical BID Qty: 30 1RF amoxicillin 500 mg tablet 500 mg PO TID Qty: 30 0RF naproxen sodium [Anaprox DS] 550 mg tablet 550 mg PO Q12H PRN (Reason: hip and back pain) Qty: 20 1RF buspirone 10 mg tablet 10 mg PO BID Qty: 60 12RF Rx Instructions: Please take 1/2 tablet p.o. nightly x 5 to 7 days and then 1 tablet p.o. nightly x 5 to 7 days and then 1 tablet p.o. twice daily thereafter Referrals Follow up/Referrals: Regis Vergara MD [Primary Care Provider] - See instructions Activity Restrictions/Add. Instructions Additional Instructions/Restrictions: At this time it was felt you are safe to be discharged home. If new or worsening symptoms please do not hesitate to return the emergency department. Please take your medications as prescribed. As discussed please follow-up with your family doctor within 1 week for continued evaluation and for further management of your blood pressure medications. Clinical Impressions Clinical Impression: Ecthyma Instructions Patient Instructions: DI for Skin Abscess Print Language Print Language: Kiswahili Discharge ED Provider: Ewa Callaway General Adult HPI General Chief complaint: Skin/Abscess/Foreign Body Stated complaint: rash all over Time Seen by Provider: 04/16/24 15:15 Mode of Arrival: Ambulatory Source of Information: Patient Limitations: No Limitations Description of Symptoms (Recalled from ER Triage Doc. by RN): Pt sent from PCP for evaluation of head to toe rash x 2 weeks. History of Present Illness HPI narrative: Patient is a 53-year-old female with past medical history of mood disorder on Abilify who presents to the emergency department for evaluation of rash. Onset was subacute over the last 2 weeks. Patient started taking Abilify and had multiple areas of rash over her extremities and thorax causing her to present here for continued evaluation. They are uncomfortable. No oral or ocular involvement. She has had a history of scabies before but the lesions are not similar currently. She also had a history of chickenpox previously as well as zoster. No other acute complaints at this time. She has not taken her Abilify in over 10 days. Related Data Home Medications ?Medication ?Instructions ?Recorded ?Confirmed hydroxyzine HCl 25 mg tablet 25 mg PO BID PRN Anxiety 03/21/24 04/16/24 Previous Rx's ?Medication ?Instructions ?Recorded omeprazole 40 mg capsule,delayed 40 mg PO DAILY #30 caps 11/15/23 release propranolol 80 mg capsule,24 80 mg PO DAILY #30 caps 11/15/23 hr,extended release naproxen sodium 550 mg tablet 550 mg PO Q12H PRN hip and back 12/29/23 (Anaprox DS) pain #20 tabs triamcinolone acetonide 0.1 % 1 applic topical BID itching #30 03/21/24 topical cream grams amoxicillin 500 mg tablet 500 mg PO TID #30 tabs 03/26/24 buspirone 10 mg tablet 10 mg PO BID #60 tabs 04/04/24 sulfamethoxazole 800 1 tab PO DAILY ecthyma 7 days #7 04/16/24 mg-trimethoprim 160 mg tablet tabs (Bactrim DS) Allergies Allergy/AdvReac Type Severity Reaction Status Date / Time morphine Allergy Nausea Verified 04/16/24 13:21 albuterol AdvReac tachycardia Verified 04/16/24 13:21 PFS PFS Disclaimer: The information contained in this section may have been updated after the patient was seen, as this information can be updated by other users. Medical History Benign tumor of small intestine PTSD (post-traumatic stress disorder) Sciatica Bipolar affect, depressed HTN (hypertension), benign Depression Anxiety Surgical History H/O oophorectomy History of cholecystectomy Family History Other No significant family history Social History Smoking Status: Never smoker alcohol intake: never substance use type: denies use current occupational status: unemployed Travel in the last 8 weeks: None caffeine: Yes Have you lived/traveled outside US in past 30 days?: No Contact w/someone who lives/traveled outside US past 30 days?: No Exposure to someone with infectious disease in past 14 days?: No Do you have a fever (greater than 100.4 F or 38 C)?: No Have you tested positive for COVID-19: No Exposed to someone with COVID-19 in past 14 days?: No Do you have a sore throat?: No Do you have a cough?: No Do you have any weakness?: No Do you have any diarrhea?: No Are you experiencing any unusual bleeding?: No Do you have any muscle aches/pain?: No Do you have any abdominal pain?: No Are you experiencing loss of taste or smell?: No Other Medical History Have you received the Flu Vaccine for this season: No Have you received the Pneumonia Vaccine: No ROS Obtained: Yes Systems reviewed as appropriate & no additional complaints except as documented Physical Exam General General appearance: alert and in no apparent distress Head Head exam: atraumatic and normocephalic Eye Eye exam: Present PERRL ENT ENT exam: Present mucous membranes moist Neck Neck exam: Present normal inspection Chest Chest inspection: Present normal inspection and symmetric chest wall rise Respiratory Respiratory exam: Present normal lung sounds bilaterally; Absent respiratory distress Cardiovascular Cardiovascular exam: Present regular rate and normal rhythm Abdominal Exam Abdominal exam: Present soft Extremities Exam Extremities exam: Present normal inspection Neurological Exam Neurological exam: Present alert Psychiatric Psychiatric exam: Present normal affect Skin Skin exam: Present warm, dry, rash and other (Scattered circumferential erythematous lesions approximately 1 to 2 cm in diameter with central scabbing, some are open without scabs. No involvement of the palms or soles no involvement of mucosa, Nikolsky negative.) Medical Decision Making Medical Records Screening: Per USPSTF and CDC recommendations, given the prevalence of disease in our region, it is our hospital?s policy to screen for HIV and viral Hepatitis for all patients aged 18 and over and those with ongoing risk factors. Pato Inquiry Pt receiving controlled substance: No Vital Signs: 04/16/24 14:31 04/16/24 15:36 Temperature 98.3 F 98.3 F Temperature Source Oral Pulse Rate 63 Pulse Rate [Right] 65 Respiratory Rate 16 18 Blood Pressure 140/75 Blood Pressure [Right Arm] 192/80 H Blood Pressure Mean [Right Arm] 117 Blood Pressure Source [Right Arm] Automatic Cuff Blood Pressure Position [Right Arm] Sitting 02 Sat by Pulse Oximetry 100 Oxygen Delivery Method Room Air Room Air Medical Decision Narrative: In summary patient is a 53-year-old female past medical history described above presents emergency department for evaluation of skin lesions. Patient is hemodynamically stable nontoxic-appearing upon arrival, afebrile. No mucosal involvement, Nikolsky negative. Most lesions are consistent with ecthyma although it is more diffuse than I would think. No linear burrows to suggest scabies although she has a history of them. She has already discontinued her Abilify which I instructed her to continue to discontinue. Exam not consistent with SJS/TENS. Given this workup with labs was considered but will be deferred at this time. Patient we discharged with a course of antibiotics and will follow-up with her family doctor next week for continued evaluation was given return precautions verbalized understanding. Critical Care Critical Care Time Critical Care Time: No
[2024-04-16 15:36] VITALS: BP 140/75; PULSE 63; RESP 18; TEMP 36.8; O2SAT 98
== END 2024-04-16 15:37 | disposition home or self-care (01) ==
PROVIDERS: Emergency Provider Student in an Organized Health Care Education/Training Program; PCP Family Medicine
DX: L08.0 Pyoderma (principal); R21 Rash and other nonspecific skin eruption
CPT/HCPCS: 99283

== ENCOUNTER 2024-07-06 15:05 | Emergency (ER) | payer MEDICAID, SELFPAY ==
[2024-07-06 15:12] VITALS: BP 154/95; PULSE 87; O2SAT 100
[2024-07-06] MEDS: LORazepam 1MG TABLET 1 MG PO (15:28)
[2024-07-06] MEDS: hydrOXYzine pamoate 25MG CAPSULE 25 MG PO (15:28)
--- NOTE | 2024-07-06 15:46 | HMH.EDGENADL ---
Discharge Plan Disposition Patient Disposition: Home, Self-Care Prescriptions Prescriptions: New prednisone 10 mg tablet 40 mg PO DAILY 14 Days Qty: 42 0RF Rx Instructions: Please take 40 mg day 1-7, 30 mg day 8-9, 20 mg day 10-12, 10 mg day 13-14 clobetasol 0.05 % cream 1 applic topical BID 14 Days Qty: 60 0RF hydroxyzine pamoate [Vistaril] 25 mg capsule 25 mg PO Q8H PRN (Reason: itching) 7 Days Qty: 21 0RF No Action hydroxyzine HCl 25 mg tablet 25 mg PO BID PRN (Reason: Anxiety) tacrolimus 0.1 % ointment topical ketoconazole 2 % cream topical Dupixent Pen 300 mg/2 mL pen injector 300 mg SQ Q2W Qty: 6 2RF hydrocodone-acetaminophen 5-325 mg tablet 1 tab PO Q4-6H PRN (Reason: pain) Qty: 30 0RF betamethasone dipropionate 0.05 % cream 1 applic topical BID Qty: 45 2RF duloxetine 20 mg capsule,delayed release(DR/EC) 20 mg PO BID prazosin 5 mg capsule 5 mg PO DAILY Citrucel (sucrose) Powder 1 tbsp PO BID Qty: 850 11RF polyethylene glycol 3350 [Miralax] 17 gram/dose powder 17 g PO BID Qty: 900 11RF metoclopramide HCl [Reglan] 5 mg tablet 5 mg PO .acbid Qty: 60 3RF Rx Instructions: administer 30 minutes before meals nortriptyline 25 mg capsule 25 mg PO HS Qty: 30 2RF naproxen sodium [Anaprox DS] 550 mg tablet 550 mg PO Q12H PRN (Reason: hip and back pain) Qty: 20 1RF propranolol 80 mg capsule,extended release 24 hr 80 mg PO DAILY Qty: 30 2RF omeprazole 40 mg capsule,delayed release(DR/EC) 40 mg PO DAILY Qty: 30 2RF Referrals Follow up/Referrals: Regis Vergara MD [Primary Care Provider] - See instructions Activity Restrictions/Add. Instructions Additional Instructions/Restrictions: Your symptoms are most consistent with bullous pemphigoid please take your prednisone taper and your clobetasol cream as prescribed as well as your Vistaril as needed for anxiety and itching. You need a biopsy and make sure that you follow-up closely with dermatology. You may also use Dove sensitive bar of soap avoid any [id number] topical medications and scented products that come in close contact with your skin. Follow up with Dr. العراقي as below or any developmental electronics assembler. Dr. Ronnie العراقي graduated with a Bachelor of Science degree in Biology from the [employer]. He obtained his medical degree from the 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 as well. He completed a residency in dermatology at the [facility], where he served as chief resident. Dr. العراقي is a board-certified diplomate of the [place]. Dr. العراقي is accepting new patients and can be reached at? tel:[phone]. Clinical Impressions Clinical Impression: Bullous pemphigoid, Anxiety Instructions Patient Instructions: DI for Skin Abscess Print Language Print Language: Yi Discharge ED Provider: Ewa Callaway General Adult HPI General Chief complaint: Skin/Abscess/Foreign Body Stated complaint: Rash,chills Time Seen by Provider: 07/06/24 15:20 History of Present Illness HPI narrative: Patient is a 54-year-old female presenting today with an extensive rash. This has been ongoing since January of last year she has been followed by a developmental electronics assembler locally has been on numerous medications that she is unable to name however from a medication review standpoint patient has been on betamethasone Dupixent hydroxyzine ketoconazole tacrolimus etc. She has been told by her developmental electronics assembler that this is most likely eczema. However she has had blistering and some of the lesions and significant worsening lately with intense pruritus. No fevers or chills or symptoms of systemic illness. Related Data Home Medications ?Medication ?Instructions ?Recorded ?Confirmed hydroxyzine HCl 25 mg tablet 25 mg PO BID PRN Anxiety 03/21/24 07/03/24 duloxetine 20 mg capsule,delayed 20 mg PO BID 06/20/24 07/03/24 release prazosin 5 mg capsule 5 mg PO DAILY 06/20/24 07/03/24 ketoconazole 2 % topical cream applic topical 06/26/24 07/03/24 tacrolimus 0.1 % topical ointment topical 06/26/24 07/03/24 Previous Rx's ?Medication ?Instructions ?Recorded naproxen sodium 550 mg tablet 550 mg PO Q12H PRN hip and back 12/29/23 (Anaprox DS) pain #20 tabs nortriptyline 25 mg capsule 25 mg PO HS #30 caps 05/08/24 omeprazole 40 mg capsule,delayed 40 mg PO DAILY #30 caps 05/30/24 release propranolol 80 mg capsule,24 80 mg PO DAILY #30 caps 05/30/24 hr,extended release methylcellulose (with sugar) oral 1 tbsp PO BID #850 grams 06/20/24 powder (Citrucel (sucrose) oral powder) metoclopramide HCl 5 mg tablet 5 mg PO .acbid #60 tabs 06/20/24 (Reglan) polyethylene glycol 3350 17 17 g PO BID #900 grams 06/20/24 gram/dose oral powder (Miralax) dupilumab 300 mg/2 mL subcutaneous 300 mg (2 mL) SQ Q2W #6 mL 06/26/24 pen injector (Dupixent) hydrocodone 5 mg-acetaminophen 325 1 tab PO Q4-6H PRN pain #30 tabs 06/27/24 mg tablet betamethasone dipropionate 0.05 % 1 applic topical BID #45 grams 07/03/24 topical cream clobetasol 0.05 % topical cream 1 applic topical BID 2 weeks #60 07/06/24 grams hydroxyzine pamoate 25 mg capsule 25 mg PO Q8H PRN itching 7 days 07/06/24 (Vistaril) #21 caps prednisone 10 mg tablet 40 mg (4 x 10 mg) PO DAILY 14 days 07/06/24 #42 tabs Allergies Allergy/AdvReac Type Severity Reaction Status Date / Time albuterol AdvReac Severe tachycardia Verified 07/06/24 15:37 morphine AdvReac Mild Nausea Verified 07/06/24 15:37 ondansetron (From Zofran) AdvReac Mild make Verified 07/06/24 15:37 nausea worse PFSH PFSH Disclaimer: The information contained in this section may have been updated after the patient was seen, as this information can be updated by other users. Medical History (Updated 07/06/24 @ 15:52 by Ewa Callaway MD) Prurigo nodularis Benign tumor of small intestine PTSD (post-traumatic stress disorder) Sciatica Bipolar affect, depressed HTN (hypertension), benign Depression Anxiety Surgical History H/O oophorectomy History of cholecystectomy Family History Other No significant family history Social History Smoking Status: Unknown if ever smoked alcohol intake: never substance use type: denies use current occupational status: unemployed Travel in the last 8 weeks?: None caffeine: Yes Have you lived/traveled outside [place] in past 30 days?: No Contact w/someone who lives/traveled outside [place] past 30 days?: No Exposure to someone with infectious disease in past 14 days?: No Do you have a fever (greater than 100.4 F or 38 C)?: No Have you tested positive for COVID-19?: No Exposed to someone with COVID-19 in past 14 days?: No Do you have a sore throat?: No Do you have a cough?: No Do you have any weakness?: No Do you have any diarrhea?: No Are you experiencing any unusual bleeding?: No Do you have any muscle aches/pain?: No Do you have any abdominal pain?: No Are you experiencing loss of taste or smell?: No Other Medical History Have you received the Flu Vaccine for this season: No Have you received the Pneumonia Vaccine: No ROS Obtained: Yes All systems reviewed & no additional complaints except as documented Physical Exam General General appearance: alert Respiratory Respiratory exam: Present normal lung sounds bilaterally Cardiovascular Cardiovascular exam: Present regular rate Neurological Exam Neurological exam: Present alert and oriented X3 Skin Skin exam: Present other (Extensive confluence erythematous rash throughout her whole body some areas where there seems to be blistering and localized lesions there are areas on the anterior chest lateral chest wall abdominal wall posterior aspect of her buttock etc.) Medical Decision Making Medical Records Screening: Per USPSTF and CDC recommendations, given the prevalence of disease in our region, it is our hospital?s policy to screen for HIV and viral Hepatitis for all patients aged 18 and over and those with ongoing risk factors. [place] Inquiry Pt receiving controlled substance: No Vital Signs: 07/06/24 15:12 07/06/24 16:11 07/06/24 17:53 Temperature 98.2 F Temperature Source Oral Pulse Rate 87 64 Pulse Rate [Right] 92 H Respiratory Rate 20 Blood Pressure 154/95 H 162/85 H Blood Pressure [Right Arm] 154/95 H Blood Pressure Mean [Right Arm] 114 Blood Pressure Source [Right Arm] Automatic Cuff 02 Sat by Pulse Oximetry 100 98 98 Oxygen Delivery Method Room Air 07/06/24 18:00 Temperature Temperature Source Pulse Rate 70 Pulse Rate [Right] Respiratory Rate Blood Pressure 152/92 H Blood Pressure [Right Arm] Blood Pressure Mean [Right Arm] Blood Pressure Source [Right Arm] 02 Sat by Pulse Oximetry 99 Oxygen Delivery Method Lab Data Lab results reviewed: Yes I reviewed the patient's lab results. Lab Results 07/06/24 16:53: WBC 10.2, RBC 4.46, Hgb 13.1, Hct 39.0, MCV 87.4, MCH 29.4, MCHC 33.6, RDW 12.1, Plt Count 253, MPV 9.6, Neut % (Auto) 74.3, Lymph % (Auto) 17.5, [place] % (Auto) 5.4, Eos % (Auto) 2.2, Baso % (Auto) 0.3, Neut # (Auto) 7.6, Lymph # (Auto) 1.8, [place] # (Auto) 0.6, Eos # (Auto) 0.2, Baso # (Auto) 0.0, ESR 21, Sodium 140, Potassium 3.5, Chloride 104, Carbon Dioxide 30, Anion Gap 9.5, BUN 9, Creatinine 1.00, Estimated Creat Clear 74, Estimated GFR 58 L, Est GFR ( Amer) 70, Glucose 97, Calcium 9.3, Total Bilirubin 0.5, AST 43 H, ALT 45, Alkaline Phosphatase 100, Total Creatine Kinase 68, C-Reactive Protein 1.6, Total Protein 7.6, Albumin 4.4, Globulin 3.2, Albumin/Globulin Ratio 1.4 07/06/24 16:53 07/06/24 16:53 Orders (Tests/Meds): ED MEDICATIONS Discontinued Medications Generic Name Dose Route Start Last Admin Trade Name Freq PRN Reason Stop Dose Admin Hydroxyzine Pamoate 25 mg 07/06/24 15:24 07/06/24 15:28 Hydroxyzine Pamoate 25mg Capsule PO 07/06/24 15:25 25 mg ONCE ONE Administration Lorazepam 1 mg 07/06/24 15:24 07/06/24 15:28 Lorazepam 1mg Tablet PO 07/06/24 15:25 1 mg ONCE ONE Administration ORDERS Category Date Time Status CBC w/Auto Diff [Complete Blood Count Auto Diff] Stat Lab 07/06/24 16:53 Completed CK [Creatine Kinase] Stat Lab 07/06/24 16:53 Completed CMP [Comprehensive Metabolic Panel] Stat Lab 07/06/24 16:53 Completed CRP [C-Reactive Protein] Stat Lab 07/06/24 16:53 Completed ESR [Erythrocyte Sedimentation Rate] Stat Lab 07/06/24 16:53 Completed Medical Decision Narrative: Patient with above history and physical she is not systemically ill rash appears to be most likely an autoimmune blistering rash most likely pemphigoid. She has been on Dupixent most likely has recently been seen by dermatology assuming that her labs are normal we will start her on a tapering dose of prednisone and topical clobetasol and have her follow-up with dermatology. Will reassess shortly. Labs unremarkable patient much improved clinically largely due to her anxiety being calm down. I have given her prednisone and clobetasol in addition to Vistaril she has been advised to use Dove sensitive soap as well as minimize any type of detergents or skin irritants that have scented components. Patient was given Dr. Ronnie Bazzi contact information with [facility] for follow-up. Critical Care Critical Care Time Critical Care Time: No
[2024-07-06 16:11] VITALS: BP 154/95; PULSE 92; RESP 20; TEMP 36.8; O2SAT 98; BMI 26.6
[2024-07-06 17:01] LABS: Basophils % 0.3 % (0.1-2.0); Eosinophils # 0.2 Kmm3 (0.0-0.4); Eosinophils % 2.2 % (0.1-12.0); Hemoglobin 13.1 g/dL (12.2-16.2); Lymphocytes # 1.8 K/mm3 (0.7-4.5); Lymphocytes % 17.5 % (10-50); Mean Corpuscular HGB Conc 33.6 g/dL (31.8-35.4); Mean Corpuscular Hemoglobin 29.4 pg (27.0-31.2); Mean Corpuscular Volume 87.4 fl (81-99); Mean Platelet Volume 9.6 fl (7.4-10.4); Monocytes # 0.6 K/mm3 (0.1-1.0); Monocytes % 5.4 % (1.7-9.3); Neutrophils # 7.6 K/mm3 (1.8-7.8); Neutrophils % 74.3 % (37.0-80.0); Nucleated Red Blood Cells # 0 10^3/uL; Nucleated Red Blood Cells % 0 %; Platelet Count 253 K/mm3 (142-424); Red Blood Count 4.46 M/mm3 (4.20-5.40); Red Cell Distribution Width 12.1 % (11.5-17.5); Red Cell Distribution Width-SD 38.7 fL; White Blood Count 10.2 K/mm3 (4.8-10.8)
[2024-07-06 17:12] LABS: Albumin Level 4.4 g/dl (3.5-5.0); Chloride 104 mmol/L (98-107)
[2024-07-06 17:13] LABS: Potassium 3.5 mmoL/L (3.5-5.1); Sodium 140 mmol/L (136-145)
[2024-07-06 17:15] LABS: Alanine Aminotransferase 45 U/L (12-78); Albumin/Globulin Ratio 1.4 (1.1-1.8); Alkaline Phosphatase 100 U/L (38-126); Anion Gap 9.5 mEq/L (5-15); Aspartate Amino Transferase 43 U/L (14-36); Bilirubin,Total 0.5 mg/dl (0.2-1.3); Blood Urea Nitrogen 9 mg/dl (7-17); Carbon Dioxide 30 mmol/L (22.0-30.0); Creatine Kinase 68 U/L (30-135); Creatinine Clearance Estimated 74 mL/min (50-200); Estimated Glomerular Filt Rate 58 ml/min (>60); GFR (African American) 70 ML/MIN (>60); Globulin 3.2 g/dL (1.3-3.2); Total Protein,Serum 7.6 g/dl (6.3-8.2)
[2024-07-06 17:16] LABS: Calcium 9.3 mg/dl (8.4-10.2); Glucose 97 mg/dl (74-100)
[2024-07-06 17:21] LABS: C-Reactive Protein 1.6 mg/L (0-4)
[2024-07-06 17:33] LABS: Erythrocyte Sedimentation Rate 21 mm/hr (0-30)
[2024-07-06 17:53] VITALS: BP 162/85; PULSE 64; O2SAT 98
--- NOTE | 2024-07-06 17:54 | PC.NURSE ---
I ROUNDED ON THE PT AND RECYCLED HER VITALS. NO NEW COMPLAINTS AT THIS TIME. NO NEEDS VOICED. PT TALKING WITH HER VISITOR. I TOOK THE VISITOR A CUP OF COFFEE AT HER REQUEST. CALL PEREZ IN [place].
[2024-07-06 18:00] VITALS: BP 152/92; PULSE 70; O2SAT 99
[2024-07-06 18:11] VITALS: BP 152/92; PULSE 71; RESP 18; TEMP 36.7; O2SAT 99
== END 2024-07-06 18:26 | disposition home or self-care (01) ==
PROVIDERS: Emergency Provider Student in an Organized Health Care Education/Training Program; PCP Family Medicine
DX: L12.0 Bullous pemphigoid (principal); F41.9 Anxiety disorder, unspecified
CPT/HCPCS: 80053; 82550; 85025; 85651; 86140; 99283